=== PATIENT | female | born 1975 | race Caucasian/White ===

== ENCOUNTER 2025-01-03 21:26 | Emergency (ER) | payer BC ==
[~2025-01-03] VITALS: Ht 149.9 cm; Wt 65.0 kg
[2025-01-03 21:28] VITALS: BP 133/51; PULSE 93; RESP 18; TEMP 98.3; O2SAT 97
--- NOTE | 2025-01-04 00:38 | ED.PDOC ---
Eye-HPI HPI Comments Pt reports bilateral eye pain x2 weeks. 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 Pt says she needs an eye flush. reports intermittent clear to whitish discharge. Rates current irritation 12/09. +Blurred and double visio Chief Complaint: Eye Problem Time Seen by MD: 21:52 Reviewed Notes: Nurses Notes, Medications, Allergies Allergies: Coded Allergies: Hydromorphone (Verified Allergy, Unknown, 01/03/25) Sulfa Antibiotics (Verified Allergy, Unknown, 01/03/25) Information Source: Patient Mode of Arrival: Ambulatory Past Medical History Past Medical History (Other): Lupus Surgical History: Denies all surgeries DREDGE PIPE INSTALLER History: No Pertinent DREDGE PIPE INSTALLER History Family History Family History: Reviewed,noncontributory to illness Social History Smoker: Non-Smoker Alcohol: Denies ETOH Use Drugs: Denies Drug Use Constitutional: denies: chills, diaphoresis, fatigue, fever, malaise, sweats, weakness, others EENTM: reports: eye pain; denies: blurred vision, double vision, ear bleeding, ear discharge, ear drainage, ear pain, ear ringing, eye redness, hearing loss, mouth pain, mouth swelling, nasal discharge, nose bleeding, nose congestion, nose pain, photophobia, tearing, throat pain, throat swelling, voice changes, others Respiratory: denies: cough, hemoptysis, orthopnea, SOB at rest, shortness of breath, SOB with excertion, stridor, wheezing, others Cardiovascular: denies: chest pain, dizzy spells, diaphoresis, Dyspnea on exertion, edema, irregular heart beat, left arm pain, lightheadedness, palpitations, PND, syncope, others Gastrointestinal: denies: abdomen distended, abdominal pain, blood streaked bowels, constipated, diarrhea, dysphagia, difficulty swallowing, hematemesis, melena, nausea, poor appetite, poor fluid intake, rectal bleeding, rectal pain, vomiting, others Genitourinary: denies: abnormal vagina bleeding, burning, dyspareunia, dysuria, flank pain, frequency, hematuria, incontinence, pain, , vagina discharge, urgency, others Neurological: denies: dizziness, fainting, headache, left sided numbness, left sided weakness, numbness, paresthesia, pre-existing deficit, right sided numbness, right sided weakness, seizure, speech problems, tingling, tremors, weakness, others Musculoskeletal: denies: back pain, gout, joint pain, joint swelling, muscle pain, muscle stiffness, neck pain, others Integumetry: denies: bruises, change in color, change in hair/nails, dryness, laceration, lesions, lumps, rash, wounds, others Allergic/Immunocompromised: denies: Difficulty Healing, Frequent Infections, Hives, Itching, others Hematologic/Lymphatic: denies: anemia, blood clots, easy bleeding, easy bruising, swollen glands, others Endocrine: denies: excessive hunger, excessive sweating, excessive thirst, excessive urination, flushing, intolerance to cold, intolerance to heat, unexplained weight gain, unexplained weight loss, others Psychiatric: denies: anxiety, bipolar disorder, depression, hopeless, panic disorder, schizophrenia, sleepless, suicidal, others Physical Exam General Appearance: No Apparent Distress, Normal HEENT: Normal ENT Inspection, Pharynx Normal, TMs Normal Neck: Full Range of Motion, Non-Tender, Normal Respiratory: Lungs Clear, No Respiratory Distress, Normal Breath Sounds Cardiovascular: No Murmur, Normal Peripheral Pulses, Regular Rate/Rhythm Breast Exam: Deferred Gastrointestinal: Non Tender, Soft Genitalia: Deferred Pelvic: Deferred Rectal: Deferred Extremities: Normal capillary refill, Normal range of motion, Non-tender Musculoskeletal : Apperance: Normal Neurologic: Alert, No Motor Deficits, Normal Affect, Normal Mood, No Sensory Deficits Cerebellar Function: Normal Reflexes: NOT DONE Skin: Dry, Normal Color, Warm Lymphatic: No Adenopathy Was a procedure done? Was a procedure done?: No EENT DIFF Eye: Corneal Ulceration, Foreign Body-Conjunctiva, Foreign Body-Corneal, Foreign Body-Intraocular, Foreign Body-Lid, Globe Rupture, Hordeolum (stye), Iritis/Uveitis X-Ray, Labs, Meds, VS Vital Signs Date Time Temp Pulse Resp B/P (MAP) Pulse Ox O2 Delivery O2 Flow Rate FiO2 01/03/25 21:28 98.3 93 18 133/51 97 98.3 Time of 1ST Reevaluation: 23:50 Reevaluation 1ST: Unchanged Time of 2ND Reevaluation: 00:35 Reevaluation 2ND: Improved Patient Education/Counseling: Diagnosis, Treatment, Prognosis, Need For Follow Up Family Education/Counseling: No Family Present SEPSIS Sepsis Screen Date sepsis recognized/suspect: Jan 03, 2025 Time Sepsis recognized/suspect: 2132 Recent Procedure: No On Antibiotic Therapy: No Respiratory Rate >20: No Heart Rate >90: No Temp<36 C (96.8 F) or >38.3 C: No SBP <90 or MAP <65 mmHG: No New Acute Mental Status Change: No Is the patient on CPAP, BIPAP,: No Vital Signs Date Time Temp Pulse Resp B/P (MAP) Pulse Ox O2 Delivery O2 Flow Rate FiO2 01/03/25 21:28 98.3 93 18 133/51 97 98.3 Departure 1 Departure Time of Disposition: 00:35 Impression: Primary Impression: Foreign body sensation, bilateral eyes Disposition: HOME / SELF CARE / HOMELESS Condition: Stable Discharged With: Self Critical Care Note Critical Care Time?: No Stability Stability form required: IDA Mei Jan 04, 2025 00:38
== END 2025-01-04 01:08 | disposition home or self-care (01) ==
LOC: ER 21:26
DX: H57.8A3 Foreign body sensation, bilateral eyes (principal); Z88.5 Allergy status to narcotic agent; Z88.2 Allergy status to sulfonamides

== ENCOUNTER 2025-01-13 17:15 | Emergency (ER) | payer BC ==
[~2025-01-13] VITALS: Ht 149.9 cm; Wt 63.1 kg
--- NOTE | 2025-01-13 18:03 | ED.PDOC ---
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 Patient reports visiting her homeless brother who had driven her car. Patient states after driving her car home from visiting her brother she developed a skin rash and was seen at [facility]. There was some concern for scabies, so she was treated with topical permethrin, then p.o. ivermectin 3 times for persistent symptoms. She was subsequently was evaluated by a dusting and brushing machine operator, and was advised he did not see any evidence of scabies and recommended no additional treatment. She states took precautions at home for scabies, including having a visit from an dispensing and measuring optician, and she was told there was no evidence of an infestation. She was also seen by her primary physician, who did not have any additional recommendations. At triage she stated that ending her life was the only way out of this, and that she feels defeated and overwhelmed. She denies any auditory or visual hallucinations, fever or other symptoms. Chief Complaint: Suicidal Time Seen by MD: 17:52 Reviewed Notes: Medications, Allergies Allergies: Coded Allergies: Hydromorphone (Verified Allergy, Unknown, 01/03/25) Sulfa Antibiotics (Verified Allergy, Unknown, 01/03/25) Home Meds Active Scripts Cetirizine Hcl (Kls Aller-Aurora) 10 Mg Tab, 1 TAB PO DAILY PRN, #30 TAB 3 Refills Prn itching Prov:BALDEV CARPENTER MD 01/13/25 Prednisone (Prednisone) 20 Mg Tab, 20 MG PO DAILY, #13 TAB 3 tabs p.o. x2 days, 2 tabs p.o. x2 days, 1 tab p.o. x3 days Prov:BALDEV CARPENTER MD 01/13/25 Fluconazole (Diflucan) 150 Mg Tab, 1 TAB PO ONCE, #2 TAB 1 Refill May repeat in 1 week if symptoms persist Prov:BALDEV CARPENTER MD 01/13/25 Information Source: Patient Mode of Arrival: Ambulatory Severity: Moderate Timing: Months Duration: Since onset Prehospital treatment: None Past Medical History Past Medical History (Other): Cutaneous lupus Surgical History: Surgical History (Other): Elective ab, ovarian cystectomy STAFF MIDWIFE/APPRENTICESHIP DIRECTOR History: No Pertinent STAFF MIDWIFE/APPRENTICESHIP DIRECTOR History Family History Family History: Reviewed,noncontributory to illness Social History Smoker: Non-Smoker Alcohol: Denies ETOH Use Drugs: Denies Drug Use Lives In: Home Constitutional: denies: chills, diaphoresis, fatigue, fever, malaise, sweats, weakness, others EENTM: denies: blurred vision, double vision, ear bleeding, ear discharge, ear drainage, ear pain, ear ringing, eye pain, eye redness, hearing loss, mouth pain, mouth swelling, nasal discharge, nose bleeding, nose congestion, nose pain, photophobia, tearing, throat pain, throat swelling, voice changes, others Respiratory: denies: cough, hemoptysis, orthopnea, SOB at rest, shortness of breath, SOB with excertion, stridor, wheezing, others Cardiovascular: denies: chest pain, dizzy spells, diaphoresis, Dyspnea on exertion, edema, irregular heart beat, left arm pain, lightheadedness, palpitations, PND, syncope, others Gastrointestinal: denies: abdomen distended, abdominal pain, blood streaked bowels, constipated, diarrhea, dysphagia, difficulty swallowing, hematemesis, melena, nausea, poor appetite, poor fluid intake, rectal bleeding, rectal pain, vomiting, others Genitourinary: denies: abnormal vagina bleeding, burning, dyspareunia, dysuria, flank pain, frequency, hematuria, incontinence, pain, , vagina discharge, urgency, others Neurological: denies: dizziness, fainting, headache, left sided numbness, left sided weakness, numbness, paresthesia, pre-existing deficit, right sided numbness, right sided weakness, seizure, speech problems, tingling, tremors, weakness, others Musculoskeletal: denies: back pain, gout, joint pain, joint swelling, muscle pain, muscle stiffness, neck pain, others Integumetry: reports: rash; denies: bruises, change in color, change in hair/nails, dryness, laceration, lesions, lumps, wounds, others Allergic/Immunocompromised: denies: Difficulty Healing, Frequent Infections, Hives, Itching, others Hematologic/Lymphatic: denies: anemia, blood clots, easy bleeding, easy bruising, swollen glands, others Endocrine: denies: excessive hunger, excessive sweating, excessive thirst, excessive urination, flushing, intolerance to cold, intolerance to heat, unexplained weight gain, unexplained weight loss, others Psychiatric: reports: suicidal; denies: anxiety, bipolar disorder, depression, hopeless, panic disorder, schizophrenia, sleepless, others All Other Systems: Reviewed and Negative Physical Exam General Appearance: Mild Distress (Tearful) HEENT: Other (Pupils and face symmetric. Moist mucous membranes.) Neck: Full Range of Motion, Normal Inspection Respiratory: Lungs Clear, No Accessory Muscle Use, No Respiratory Distress, Normal Breath Sounds Cardiovascular: No Edema, No JVD, Regular Rate/Rhythm Breast Exam: Deferred Gastrointestinal: Non Tender, Soft Genitalia: Deferred Pelvic: Deferred Rectal: Deferred Extremities: Normal inspection, Normal range of motion, Non-tender, No pedal edema Neurologic: Alert (Oriented x4), Other (Anxious and tearful. Ambulatory.) Cerebellar Function: NOT DONE Reflexes: NOT DONE Skin: Dry, Rash (Upper chest and lower neck erythema, minimal scattered erythematous papular subcentimeter rash on left forearm and right inner thigh, flaky/dry skin on the soles of the feet.), Warm Lymphatic: NOT DONE Was a procedure done? Was a procedure done?: No Differential Dx Considerations may include: Scabies, cutaneous lupus exacerbation or other autoimmune rash, fungal rash, among others X-Ray, Labs, Meds, VS Vital Signs Date Time Temp Pulse Resp B/P (MAP) Pulse Ox O2 Delivery O2 Flow Rate FiO2 01/13/25 20:00 68 01/13/25 19:50 67 18 92 Room Air* 0 21 01/13/25 19:40 98.6 67 18 93/55 (68) 92 98.6 01/13/25 18:10 79 18 97 Room Air* 0 21 01/13/25 18:10 98.8 79 18 118/75 (89) 97 98.8 01/13/25 17:17 98.0 95 18 148/90 96 98.0 Lab Test 01/13/25 18:09 01/13/25 17:51 Range/Units White Blood Count 6.1 4.4-10.8 10^3/uL Red Blood Count 4.37 4.0-5.20 10^6/uL Hemoglobin 14.1 12.2-16.2 g/dL Hematocrit 40.6 36.0-46.0 % Mean Corpuscular Volume 93.0 80.0-100.0 fL Mean Corpuscular Hemoglobin 32.2 H 28.0-32.0 pg Mean Corpuscular Hemoglobin Concent 34.7 32.0-36.0 g/dL Red Cell Distribution Width 12.9 11.8-14.3 % Platelet Count 188 140-450 10^3/uL Mean Platelet Volume 8.6 6.9-10.8 fL Neutrophils (%) (Auto) 56.1 37.0-80.0 % Lymphocytes (%) (Auto) 31.3 10.0-50.0 % Monocytes (%) (Auto) 9.8 0.0-12.0 % Eosinophils (%) (Auto) 1.9 0.0-7.0 % Basophils (%) (Auto) 0.9 0.0-2.0 % Neutrophils # (Auto) 3.4 1.6-8.6 10 ^3/uL Lymphocytes # (Auto) 1.9 0.4-5.4 10 ^3/uL Monocytes # (Auto) 0.6 0-1.3 10 ^3/uL Eosinophils # (Auto) 0.1 0-0.8 10 ^3/uL Basophils # (Auto) 0.1 0-0.2 10 ^3/uL Nucleated Red Blood Cells 0.0 % Sodium Level 136 136-145 mmol/L Potassium Level 3.1 L 3.5-5.1 mmol/L Chloride Level 107 98-107 mmol/L Carbon Dioxide Level 22 20-31 mmol/L Anion Gap 7 5-15 Blood Urea Nitrogen < 5 L 9-23 mg/dL Creatinine 0.84 0.550-1.02 mg/dL Glomerular Filtration Rate Calc 86 >90 mL/min BUN/Creatinine Ratio 6.0 L 10.0-20.0 Serum Glucose 130 H 74-106 mg/dL Calcium Level 9.3 8.7-10.4 mg/dL Total Bilirubin 0.5 0.2-1.0 mg/dL Aspartate Amino Transferase (AST) 23 13-40 U/L Alanine Aminotransferase (ALT) 17 7-40 U/L Alkaline Phosphatase 55 46-116 U/L Total Protein 6.8 5.7-8.2 g/dL Albumin 4.7 3.2-4.8 g/dL Salicylates Level < 3.0 -30 mg/dL Acetaminophen Level < 2.0 L 10.0-20.0 UG/ML Plasma/Serum Blood Alcohol < 3.0 <10 mg/dL Urine Color Colorless Yellow Urine Clarity Clear Clear Urine pH 5.5 5.0-9.0 Urine Specific [place] 1.002 1.001-1.035 Urine Protein Negative Negative Urine Ketones Trace Negative Urine Blood Negative Negative /uL Urine Nitrite Negative Negative Urine Bilirubin Negative Negative Urine Urobilinogen Normal Negative mg/dL Urine Leukocyte Esterase Negative Negative /uL Urine RBC <1 0 - 4 /hpf Urine Microscopic WBC 2 0-5 /HPF Urine Squamous Epithelial Cells None seen <5 /hpf Urine Bacteria Few H None Seen /hpf Urine Glucose Normal Normal mg/dL Urine Test Negative Negative Urine Opiates Screen Neg NEGATIVE Urine Fentanyl Screen Neg NEGATIVE Urine Barbiturates Screen Neg NEGATIVE Urine Phencyclidine Screen Neg NEGATIVE Urine Amphetamines Screen Neg NEGATIVE Urine Benzodiazepines Screen Neg NEGATIVE Urine Cocaine Screen Neg NEGATIVE Urine Cannabinoids Screen Neg NEGATIVE Current Medications Medications (Trade) Dose Ordered Sig/Mateo Route Start Time Stop Time Status Last Admin Dexamethasone Sodium Phosphate (Decadron Injection) 10 mg ONCE ONCE IM 01/13/25 18:45 01/13/25 18:46 DC 01/13/25 19:06 Potassium Bicarbonate (Klor-Con/Ef) 50 meq ONCE ONCE PO 01/13/25 20:15 01/13/25 20:50 DC 01/13/25 20:55 X-Ray, Labs, Meds, VS Comment 49-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 Patient also reports feeling anxious and defeated, stating ending her life would be the only way out of her current situation. Vitals remarkable for BP 148/90 Exam remarkable for anxious and tearful appearance, upper chest and lower neck erythema, minimal scattered erythematous papular subcentimeter rash on left forearm and right inner thigh, flaky/dry skin on the soles of the feet. Rhythm strip independently interpreted by me: Sinus rhythm, rate 95, no ectopy CBC unremarkable, CMP remarkable for potassium 3.1. Alcohol, Tylenol, salicylate, UA and urine drug screen unremarkable Patient treated with the following in the ED: Decadron 10 mg IM, effervescent potassium 50 mEq p.o. On re-evaluation, patient is resting comfortably with stable vitals. Plan is for tele psych evaluation. If cleared by psych, patient may be discharged with close follow-up with her primary doctor and packing room supervisor. Doubt scabies, as the patient has been treated both topically and orally with anti parasitic. Possibly patient's symptoms are due to autoimmune disease or fungal infection. Rx Diflucan, prednisone, cetirizine, hydroxyzine Case discussed with Dr. Martinez at 9:40 p.m. He interviewed the patient via video consultation and does not feel the patient meets criteria for hospitalization psychiatric reasons, and felt patient could be safely discharged home on antihistamines and follow-up with Dermatology and/or rheumatology. Time of 1ST Reevaluation: 18:22 Reevaluation 1ST: Unchanged Time of 2ND Reevaluation: 21:41 Reevaluation 2ND: Improved Patient Education/Counseling: Diagnosis, Treatment, Need For Follow Up Family Education/Counseling: No Family Present SEPSIS Sepsis Screen Date sepsis recognized/suspect: Jan 13, 2025 Time Sepsis recognized/suspect: 1719 Recent Procedure: No On Antibiotic Therapy: No Respiratory Rate >20: No Heart Rate >90: Yes Temp<36 C (96.8 F) or >38.3 C: No SBP <90 or MAP <65 mmHG: No New Acute Mental Status Change: No Is the patient on CPAP, BIPAP,: No SEPSIS EXCLUSION NOTE: Sepsis Exclusion Note: Patient presents with SIRS criteria, but the SIRS response is attributed to [anxiety ], not a suspected infection. Sepsis bundle is not initiated at this time, due to this reason. Further management will focus on the treatment of the above condition (s). Physician Orders *Tele Psych Consult (01/13/25 20:04) Vital Signs Date Time Temp Pulse Resp B/P (MAP) Pulse Ox O2 Delivery O2 Flow Rate FiO2 01/13/25 20:00 68 01/13/25 19:50 67 18 92 Room Air* 0 21 01/13/25 19:40 98.6 67 18 93/55 (68) 92 98.6 01/13/25 18:10 79 18 97 Room Air* 0 21 01/13/25 18:10 98.8 79 18 118/75 (89) 97 98.8 01/13/25 17:17 98.0 95 18 148/90 96 98.0 Laboratory Tests Test 01/13/25 18:09 White Blood Count 6.1 10^3/uL (4.4-10.8) Medications Medications Dose Ordered Sig/Mateo Route Start Time Stop Time Status Last Admin Dose Admin Dexamethasone Sodium Phosphate 10 mg ONCE ONCE IM 01/13/25 18:45 01/13/25 18:46 DC 01/13/25 19:06 Potassium Bicarbonate 50 meq ONCE ONCE PO 01/13/25 20:15 01/13/25 20:50 DC 01/13/25 20:55 Departure 1 Departure Time of Disposition: 21:41 Impression: Primary Impression: Rash Disposition: HOME / SELF CARE / HOMELESS Condition: Stable Additional Instructions: Your blood tests were unremarkable except for a low potassium. We have corrected your potassium in the ER. I have prescribed antifungals and steroids to treat a possible fungal skin infection and/or an allergic/autoimmune reaction. Follow-up with your primary doctor in 1-2 days. Follow-up with your packing room supervisor as soon as possible. Return to ER for persistent or worsening symptoms. e-Prescriptions Hydroxyzine HCl (Hydroxyzine Hydrochloride) 25 Mg Tab 25 MG PO TID PRN, #30 TAB Prn itching or anxiety Prov: BALDEV CARPENTER MD 01/13/25 Cetirizine Hcl (Kls Aller-Aurora) 10 Mg Tab 1 TAB PO DAILY PRN, #30 TAB 3 Refills Prn itching Prov: BALDEV CARPENTER MD 01/13/25 Prednisone (Prednisone) 20 Mg Tab 20 MG PO DAILY, #13 TAB 3 tabs p.o. x2 days, 2 tabs p.o. x2 days, 1 tab p.o. x3 days Prov: BALDEV CARPENTER MD 01/13/25 Fluconazole (Diflucan) 150 Mg Tab 1 TAB PO ONCE, #2 TAB 1 Refill May repeat in 1 week if symptoms persist Prov: BALDEV CARPENTER MD 01/13/25 Discharged With: Relative Critical Care Note Critical Care Time?: No Stability Stability form required: No Heart Score Heart Score: Heart Score Response (Comments) Value History N/A 0 EKG N/A 0 Age N/A 0 Risk Factors N/A 0 Troponin N/A 0 Total 0 I personally scrib[facility] on 01/13/25 at 18:03. Electronically submitted by Aidan Balderrama ([email or web address]). BALDEV CARPENTER MD Jan 13, 2025 18:03
[2025-01-13 18:10] VITALS: PULSE 79; RESP 18; O2SAT 97
[2025-01-13 18:21] LABS: Hematocrit 40.6 % (36.0-46.0); Hemoglobin 14.1 g/dL (12.2-16.2); Mean Corpuscular Hemoglobin 32.2 pg (28.0-32.0); Mean Corpuscular Volume 93.0 fL (80.0-100.0); Nucleated Red Blood Cells % 0.0 %
[2025-01-13 18:34] LABS: Urine Protein, UAD Negative (Negative)
[2025-01-13 18:39] LABS: Amphetamine Screen, Urine Neg (NEGATIVE); Barbiturate Scree,Urine Neg (NEGATIVE); Benzodiazephine Screen, Urine Neg (NEGATIVE); Cannabinoid Screen, Urine Neg (NEGATIVE); Cocaine Screen, Urine Neg (NEGATIVE); Opiate Scree,Urine Neg (NEGATIVE); Phencyclidine Screen, Urine Neg (NEGATIVE)
[2025-01-13 18:52] LABS: Alanine Aminotransferase 17 U/L (7-40); Albumin 4.7 g/dL (3.2-4.8); Alkaline Phosphatase 55 U/L (46-116); Anion Gap 7 (5-15); Calcium 9.3 mg/dL (8.7-10.4); Carbon Dioxide 22 mmol/L (20-31); Sodium 136 mmol/L (136-145); Total Protein 6.8 g/dL (5.7-8.2)
[2025-01-13 18:53] LABS: BUN/Creatinine Ratio 6.0 (10.0-20.0); Bilirubin, Total 0.5 mg/dL (0.2-1.0); Blood Urea Nitrogen < 5 mg/dL (9-23); Chloride 107 mmol/L (98-107); Glucose 130 mg/dL (74-106); Potassium 3.1 mmol/L (3.5-5.1)
[2025-01-13 19:05] LABS: Acetaminophen < 2.0 UG/ML (10.0-20.0); Salicylate < 3.0 mg/dL (-30)
[2025-01-13 19:50] VITALS: PULSE 67; RESP 18; O2SAT 92
[2025-01-13] MEDS ORDERED: PRED20TA2 PO (20:25)
[2025-01-13] MEDS ORDERED: FLUC150T38 PO (20:25)
[2025-01-13] MEDS ORDERED: CETI10TA2 PO (20:25)
[2025-01-13] MEDS: POTASSIUM EFFERVESENT TAB 25 MEQ PO ONE (20:55)
[2025-01-13] MEDS ORDERED: HYDR-4924 PO (21:42)
--- NOTE | 2025-01-13 21:44 | DVHINCON2 ---
Date of Service if different f: Jan 13, 2025 Time of Service: 21:14 Consultation ([facility]) Consulting Physician: FLORENCE BROOKS MD Labs Laboratory Tests Test 01/13/25 17:51 01/13/25 18:09 Urine Color Colorless (Yellow) Urine Clarity Clear (Clear) Urine pH 5.5 (5.0-9.0) Urine Specific [place] 1.002 (1.001-1.035) Urine Protein Negative (Negative) Urine Ketones Trace (Negative) Urine Blood Negative /uL (Negative) Urine Nitrite Negative (Negative) Urine Bilirubin Negative (Negative) Urine Urobilinogen Normal mg/dL (Negative) Urine Leukocyte Esterase Negative /uL (Negative) Urine RBC <1 /hpf (0 - 4) Urine Microscopic WBC 2 /HPF (0-5) Urine Squamous Epithelial Cells None seen /hpf (<5) Urine Bacteria Few /hpf (None Seen) Urine Glucose Normal mg/dL (Normal) Urine Test Negative (Negative) Urine Opiates Screen Neg (NEGATIVE) Urine Fentanyl Screen Neg (NEGATIVE) Urine Barbiturates Screen Neg (NEGATIVE) Urine Phencyclidine Screen Neg (NEGATIVE) Urine Amphetamines Screen Neg (NEGATIVE) Urine Benzodiazepines Screen Neg (NEGATIVE) Urine Cocaine Screen Neg (NEGATIVE) Urine Cannabinoids Screen Neg (NEGATIVE) White Blood Count 6.1 10^3/uL (4.4-10.8) Red Blood Count 4.37 10^6/uL (4.0-5.20) Hemoglobin 14.1 g/dL (12.2-16.2) Hematocrit 40.6 % (36.0-46.0) Mean Corpuscular Volume 93.0 fL (80.0-100.0) Mean Corpuscular Hemoglobin 32.2 pg (28.0-32.0) Mean Corpuscular Hemoglobin Concent 34.7 g/dL (32.0-36.0) Red Cell Distribution Width 12.9 % (11.8-14.3) Platelet Count 188 10^3/uL (140-450) Mean Platelet Volume 8.6 fL (6.9-10.8) Neutrophils (%) (Auto) 56.1 % (37.0-80.0) Lymphocytes (%) (Auto) 31.3 % (10.0-50.0) Monocytes (%) (Auto) 9.8 % (0.0-12.0) Eosinophils (%) (Auto) 1.9 % (0.0-7.0) Basophils (%) (Auto) 0.9 % (0.0-2.0) Neutrophils # (Auto) 3.4 10 ^3/uL (1.6-8.6) Lymphocytes # (Auto) 1.9 10 ^3/uL (0.4-5.4) Monocytes # (Auto) 0.6 10 ^3/uL (0-1.3) Eosinophils # (Auto) 0.1 10 ^3/uL (0-0.8) Basophils # (Auto) 0.1 10 ^3/uL (0-0.2) Nucleated Red Blood Cells 0.0 % Sodium Level 136 mmol/L (136-145) Potassium Level 3.1 mmol/L (3.5-5.1) Chloride Level 107 mmol/L (98-107) Carbon Dioxide Level 22 mmol/L (20-31) Anion Gap 7 (5-15) Blood Urea Nitrogen < 5 mg/dL (9-23) Creatinine 0.84 mg/dL (0.550-1.02) Glomerular Filtration Rate Calc 86 mL/min (>90) BUN/Creatinine Ratio 6.0 (10.0-20.0) Serum Glucose 130 mg/dL (74-106) Calcium Level 9.3 mg/dL (8.7-10.4) Total Bilirubin 0.5 mg/dL (0.2-1.0) Aspartate Amino Transf (AST/SGOT) 23 U/L (13-40) Alanine Aminotransferase (ALT/SGPT) 17 U/L (7-40) Alkaline Phosphatase 55 U/L (46-116) Total Protein 6.8 g/dL (5.7-8.2) Albumin 4.7 g/dL (3.2-4.8) Salicylates Level < 3.0 mg/dL (-30) Acetaminophen Level < 2.0 UG/ML (10.0-20.0) Plasma/Serum Blood Alcohol < 3.0 mg/dL (<10) Appearance: Stated age Psychomotor activity: WNL Behavioral: Cooperative Eye contact: Appropriate Speech: WNL Affect: Appropriate Mood: Depressed Thought processes: Linear/Goal-directed Thought content: WNL Suicidal ideations: Absent Homicidal ideations: Absent Orientation: Person, Place, Time, Situation Memory intact: Recent Intellect: Average Abstractability: WNL Concentration: Adequate Attention: Adequate Judgement: WNL Insight: Good Vitals Vital Signs Date Time Temp Pulse Resp B/P (MAP) Pulse Ox O2 Delivery O2 Flow Rate FiO2 01/13/25 20:00 68 01/13/25 19:50 18 92 Room Air* 0 21 01/13/25 19:40 98.6 93/55 (68) 98.6 Treatment plan discussed: With staff Medication adjusted: Yes Labs ordered: No Psychotherapy provided: Yes Type: Voluntary History of Present Illness Reason for Consult : psychiatric evaluation PER ED PHYSICIAN NOTE:49-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 Patient reports visiting her homeless brother who had driven her car. Patient states after driving her car home from visiting her brother she developed a skin rash and was seen at [facility]. There was some concern for scabies, so she was treated with topical permethrin, then p.o. ivermectin 3 times for persistent symptoms. She was subsequently was evaluated by a transit proof machine operator, and was advised he did not see any evidence of scabies and recommended no additional treatment. She states took precautions at home for scabies, including having a visit from an recycle coordinator, and she was told there was no evidence of an infestation. She was also seen by her primary physician, who did not have any additional recommendations. At triage she stated that ending her life was the only way out of this, and that she feels defeated and overwhelmed. She denies any auditory or visual hallucinations, fever or other symptoms. PSYCHIATRIST HPI: The patient was seen and evaluated at [facility] ED via telepsychiatry platform. 49 yr old male reported that her situation is unbearable. She saw her [place] around the november and visited her homeless brother and he drove her car to where he was staying. By the time she got home, she had pinprick sensations on her skin and she developed a rash on her back which they felt could be scabies. Even after doing a couple rounds of ivermectin, she had return of her rash. She is exhausted by the protocol to clear the scabies. She feels defeated and she isn't used to that. She feels a little hopeless in this situation. She feels like there is nothing else she can do. She has a history of cutaneous lupus and saw her transit proof machine operator about this. She asked if they could do a skin scraping to check it out, but they declined. She is not on an antihistamine, but has been treated topically and orally for scabies. She denied having suicidal ideation, plan or intent.She denied homicidal ideation, plan or intent. She denied having auditory or visual hallucinations. Past Psychiatric History : Diagnosed with anxiety in 2017. No past hospitalizations. No past suicide attempts. Past Medical History: cutaneous lupus Current Medications: none Has an ativan prescription for anxiety which she takes about once every 2-3 months. Substance use: Denied use of alcool and other substance use. Social History : Lives in [place] with 29 yr old son. Never , one son. Works as school bus attendant. Diagnosis: adjustment disorder with depressed mood Formulation: This 49 yr old female appears to be frustrated by an enduring rash which likely was started by scabies. She is anxious and depressed as a result of it. She may benefit from starting hydroxyzine to help reduce her itching and anxiety. She does not warrant psychiiatric hospitalization. Plan: 1. Safety. The patient is a low risk for self-harm and may be managed as an outpatient. 2. Legal-Voluntary. 3. Medication:recommend starting hydroxyzine 10-25mg q8hr for itching and anxiety. 4. Contact psychiatry if further evaluation or follow up is desired. 5. case discussed with ED Physician, Dr Dallas. Assessment/Diagnosis/Plan Reviewed: Labs, Medications, Previous Orders FLORENCE BROOKS MD Jan 13, 2025 21:15
[2025-01-13 22:50] VITALS: BP 93/55; PULSE 67; RESP 18; TEMP 98.2; O2SAT 92
== END 2025-01-13 22:14 | disposition home or self-care (01) ==
LOC: ER 17:15
DX: R21 Rash and other nonspecific skin eruption (principal); Z79.899 Other long term (current) drug therapy; Z98.890 Other specified postprocedural states; Z88.5 Allergy status to narcotic agent; Z79.52 Long term (current) use of systemic steroids; Z88.2 Allergy status to sulfonamides
CPT/HCPCS: 36415; 80053; 80307; 80320; 80329; 81001; 81025; 85025; 96372; 99285; J1100